=== PATIENT | male | born 1965 | race Caucasian/White ===

== ENCOUNTER 2017-04-26 05:39 | Day surgery (SDC) | payer OTHER ==
[~2017-04-26] VITALS: Ht 157.5 cm; Wt 163.6 kg
[~2017-04-26 05:39] MED LIST: AZELASTINE137 MCG/0. BOTH NARES; BACTROBAN NASAL1 G1 BOTH NARES; CLINDAMYCIN HC300 MG PO; COZAAR50 MG PO; LEXAPRO10 MG PO; LO-DOSE ASPIRIN81 M1 PO; METFORMIN HCL500 MG PO; MICRO-K10 ME2 PO; SPIRONOLACT/HC1 EACH PO; ZYVOX600 MG PO
[2017-04-26 06:17] VITALS: BP 151/66
[2017-04-26 09:59] VITALS: BP 151/70
[2017-04-26 10:32] VITALS: BP 161/77
== END 2017-04-26 10:50 | disposition home or self-care (01) ==
LOC: SDC 05:39
PROC: 0KNW0ZZ Release Left Foot Muscle, Open Approach (ICD-10-PCS; principal; 2017-04-26)
DX: M72.2 Plantar fascial fibromatosis (principal); I10 Essential (primary) hypertension; I35.0 Nonrheumatic aortic (valve) stenosis; E66.01 Morbid (severe) obesity due to excess calories; Z68.42 Body mass index [BMI] 45.0-49.9, adult; Z87.891 Personal history of nicotine dependence; G47.33 Obstructive sleep apnea (adult) (pediatric); R73.03 Prediabetes
CPT/HCPCS: 87641; J0690; J1100; J2250; J3010; S0020